=== PATIENT | female | born 2000 | race African-American/Black ===

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

== ENCOUNTER 2021-01-25 22:59 | Emergency (ER) | payer OTHER | END 2021-01-26 00:11 | disposition left against medical advice (07) | LOC: ERS 22:59 | DX: Z53.21 Procedure and treatment not carried out due to patient leaving prior to being seen by health care provider (principal) ==

== ENCOUNTER 2021-02-13 16:14 | Emergency (ER) | payer SELFPAY | END 2021-02-13 16:30 | disposition left against medical advice (07) | LOC: ERS 16:14 | DX: Z53.21 Procedure and treatment not carried out due to patient leaving prior to being seen by health care provider (principal) ==

== ENCOUNTER 2023-08-24 08:11 | Emergency (ER) | payer SELFPAY | END 2023-08-24 08:30 | disposition home or self-care (01) | LOC: ERS 08:11 | DX: B34.9 Viral infection, unspecified (principal) | CPT/HCPCS: 99283 ==